=== PATIENT | female | born 1990 | race Caucasian/White ===

== ENCOUNTER 2022-10-31 18:48 | Emergency (ER) | payer OTHER, SELFPAY ==
[2022-10-31 18:59] VITALS: BP 157/87; PULSE 96; RESP 18; TEMP 36.9; O2SAT 99; BMI 40.7
--- NOTE | 2022-10-31 19:03 | DI.RAD.S_ITS ---
PROCEDURE: XR ANKLE RT MIN 3V INDICATIONS: Fall with injury TECHNIQUE: 3 views of the ankle were acquired. COMPARISON: None. FINDINGS: Bones: No fractures or dislocations. Ankle mortise is normally aligned. Small plantar and dorsal calcaneal enthesophytes are seen. No suspicious bony lesions. Soft tissues: No tibiotalar joint effusion. Achilles tendon appears normal. IMPRESSION: No acute ankle fracture or dislocation. Ankle mortise is congruent. Small calcaneal enthesophytes. Dictated by: Emerson Fisher M.D. on 10/31/2022 at 19:14 Approved by: Emerson Fisher M.D. on 10/31/2022 at 19:15
--- NOTE | 2022-10-31 20:39 | ED_ITS ---
HPI - Extremity Injury (Lower) General Chief Complaint: Extremity Injury, Lower Stated Complaint: R ankle pain after fall Time Seen by Provider: 10/31/22 20:38 Source: patient Mode of arrival: Ambulatory History of Present Illness HPI Narrative: This is a 32-year-old female with no reported medical issues who was at a trampoline park today. She was jumping off the trampoline when she landed on the of the trampoline which is what in on her right ankle directly and put all of her weight onto it. She states she is pain sort of in the soft tissue of the ankle. Patient states it is painful for her to dorsiflex and invert and laurie. She can weightbear but is uncomfortable. She states it was numb initially at the dolan area but that went away after a short period of time. She denies any numbness tingling persistently. She denies prior injuries or issues. She is not taken anything for pain today. She denies any other daily medical issues or medications. No major surgeries besides eye surgeries as a kid. She is allergic to penicillin. She does have a PCP. Related Data Allergies Allergy/AdvReac Type Severity Reaction Status Date / Time Penicillins AdvReac Hives Verified 10/31/22 18:59 Review of Systems Review of Systems ROS Unobtainable: All systems reviewed & are unremarkable except as noted in HPI and below Patient History Social History Smoking Status: Never smoker Smoking Status: Never smoker Substance Use Type: does not use Exam Narrative Exam Narrative: GENERAL: Alert and oriented x three, female in mild distress HEENT: Head normocephalic, atraumatic, EOMI, pupils reactive, face symmetric, moist mucous membranes EXTREMITIES: Normal range of motion, no clubbing or edema. Neurovascularly intact. Patient has tenderness just above the talus, more in the soft tissue. No acute bony tenderness appreciated. Patient does have pain with flexion extension at the ankle inversion eversion. No warmth, erythema ecchymosis or other changes. 2+ dorsalis pedis. Some sensation throughout the foot is normal as well as toes. NEUROLOGICAL: Cranial nerves II through XII grossly intact. Moving all extremities SKIN: Warm, dry, no petechiae, no rashes or lesions. Initial Vital Signs Initial Vital Signs: Vital Signs Temperature 98.4 F 12/18/22 18:59 Pulse Rate 96 H 10/31/22 18:59 Respiratory Rate 18 10/31/22 18:59 Blood Pressure 157/87 H 10/31/22 18:59 Pulse Oximetry 99 10/31/22 18:59 Oxygen Delivery Method 10/31/22 18:59 Course Orders Ordered: ED Orders 10/31/22 19:03 XR ankle RT min 3V Stat Vital Signs Vital signs: Vital Signs - 8 hr 10/31/22 18:59 Temperature 98.4 F Pulse Rate 96 H Respiratory Rate 18 Blood Pressure 157/87 H Pulse Oximetry 99 Oxygen Delivery Method Room Air MDM - Extremity Injury (Lower) Imaging Data Extremity x-ray #1: Radiologist's Impression: [address] [id number] XRay Report Signed Patient: Kait Jaime MR#: [id number] : 1990 Acct:[id number] Age/Sex: 32 / F Date of Service: 10/31/22 Loc: ED Accession Number: [id number] ?? Procedure: XR ankle RT min 3V Ordering Provider: China Trejo D.O. PROCEDURE:? XR ANKLE RT MIN 3V ? INDICATIONS:? Fall with injury ? TECHNIQUE:? 3 views of the ankle were acquired.? ? COMPARISON:? None. ? FINDINGS:? ? Bones:? No fractures or dislocations.? Ankle mortise is normally aligned.? Small plantar and dorsal calcaneal enthesophytes are seen.? No suspicious bony lesions.? ? Soft tissues:? No tibiotalar joint effusion.? Achilles tendon appears normal.? ? ? IMPRESSION:? No acute ankle fracture or dislocation.? Ankle mortise is congruent.? Small calcaneal enthesophytes. ? Dictated by: Emerson Fisher M.D. on 10/31/2022 at 19:14 ? ? Approved by: Emerson Fisher M.D. on 10/31/2022 at 19:15?? [facility] Narrative Medical decision making narrative: 32-year-old female with tenderness above the talus, patient been be placed in a walking she has crutches. Tylenol ibuprofen. Rice with follow up in 7-10 days for repeat imaging if persisting. Discharge Plan Departure Patient Disposition: Home Clinical Impression: Ankle sprain and strain Instructions: DI for Ankle Sprain Activity Restrictions/Additional Instructions: Please follow-up with your physician in 7-10 days for recheck and repeat imaging of your ankle if your symptoms are not improving. You may take Tylenol and/or ibuprofen as needed for pain You may weightbear as tolerated. You can stop using the walking boot if your symptoms resolve. Splint Care: Keep splint clean and dry. Elevated affected body part to decrease swelling. OK to use ice pack on the affected body part. Use for 15-20 minutes each time, for 5-6x per day. If you develop worsening pain, numbness, tingling, discoloration of the affected body part, loosen the splint by loosening the DINA wrap, and either see your doctor for an urgent re-assessment, or return to the Emergency Department. Return to the Emergency Department for any new or worsening symptoms. Visit Report Forms: Patient Portal/API
[2022-10-31 20:52] VITALS: BP 132/79; PULSE 78; RESP 18; O2SAT 100
== END 2022-10-31 20:59 | disposition home or self-care (01) ==
PROVIDERS: Emergency Provider Emergency Medicine
DX: S93.401A Sprain of unspecified ligament of right ankle, initial encounter (principal); W18.30XA Fall on same level, unspecified, initial encounter; Y93.44 Activity, trampolining
CPT/HCPCS: 73610; 99283